=== PATIENT | male | born 1960 | race Caucasian/White ===

== ENCOUNTER 2021-10-12 11:10 | Inpatient (IN) ==
[2021-10-12 12:46] LABS: Basophils # 0.1 K/mcL (0.0-0.2); Eosinophils # 0.2 K/mcL (0.0-0.6); Eosinophils % 2.1 %; Hematocrit 37.9 % (37.5-50.1); Hemoglobin 12.7 g/dL (12.9-16.9); Immature Granulocytes % 0.9 % (0-4); Lymphocytes # 1.3 K/mcL (0.6-4.6); Lymphocytes % 17.8 %; Mean Corpuscular HGB Conc 33.5 g/dL (31.6-35.5); Mean Corpuscular Hemoglobin 31.6 pg (28.0-33.3); Mean Corpuscular Volume 94.3 fL (83.0-100.0); Mean Platelet Volume 10.2 fL (9.4-12.4); Monocytes # 0.9 K/mcL (0.0-1.3); Monocytes % 12.4 %; Neutrophils # 4.6 K/mcL (1.6-8.9); Platelet Count 184 K/mcL (140-400); Red Blood Count 4.02 M/mcL (4.19-5.50); Red Cell Distribution Width 14.2 % (11.5-14.5); Segmented Neutrophils % 65.8 %
[2021-10-12 12:57] LABS: INR 1.3; Prothrombin Time 14.3 Seconds (9.4-12.1)
[2021-10-12 13:00] LABS: Activated Partial Thrombo Time 36.9 Seconds (26.0-36.0)
[2021-10-12 13:02] LABS: Bilirubin,Urine Negative (Negative); Blood,Urine Negative (Negative); Clarity,Urine Clear (Clear); Color,Urine Yellow (Yellow); Glucose,Urine (UA) Normal (Normal); Ketones,Urine Negative (Negative); Leukocyte Esterase,Urine Negative (Negative); Nitrite,Urine Negative (Negative); Protein,Urine Trace mg/dL (Neg-Trace); Specific Gravity,Urine 1.026 (1.010-1.025)
[2021-10-12 13:07] LABS: Amphetamine Screen,Urine Negative ng/mL (Cutoff=1000); Barbiturate Screen,Urine Negative ng/mL (Cutoff=200); Benzodiazepines Screen,Urine Negative ng/mL (Cutoff=200); Cannabinoid Screen,Urine Negative ng/mL (Cutoff = 50); Cocaine Screen,Urine Negative ng/mL (Cutoff= 300); Opiate Screen,Urine Negative ng/mL (Cutoff=300); Phencyclidine Screen,Urine Negative ng/mL (Cutoff=25)
[2021-10-12 13:07] LABS: Alanine Aminotransferase 20 Units/L (7-52); Albumin 2.8 g/dL (3.5-5.7); Albumin/Globulin Ratio 0.8 (1.1-2.2); Alkaline Phosphatase 76 Units/L (34-104); Aspartate Amino Transferase 31 Units/L (13-39); BUN/Creatinine Ratio 25 (6-26); Bilirubin,Direct 0.6 mg/dL (0.0-0.2); Bilirubin,Indirect 1.3 mg/dL (0.0-1.0); Bilirubin,Total 1.9 mg/dL (0.3-1.0); Blood Urea Nitrogen 25 mg/dL (8-23); Carbon Dioxide 19 mEq/L (23-29); Chloride 108 mEq/L (98-107); Creatine Kinase 35 Units/L (30-223); Ethanol < 10 mg/dL (Less than 10); Globulin 3.3 g/dL (2.4-3.5); Glucose 122 mg/dL (70-105); Osmolality,Calculated 284 (280-300); Potassium 4.2 mEq/L (3.5-5.1); Sodium 134 mEq/L (136-145); Total Protein 6.1 g/dL (6.4-8.9); Troponin I < 0.03 ng/mL (< 0.04); eGFR For African Americans > 60 (> 60); eGFR For Non-African Americans > 60 (> 60)
[2021-10-12] MEDS ORDERED: 0.9 % Sodium Chloride 500 ML IVC ONE (14:24)
[2021-10-12] MEDS ORDERED: cefTRIAXone 1,000 MG in 0.9 % Sodium Chloride Mini Bag 100 ML IVPB ONE (14:57)
[2021-10-12] MEDS ORDERED: Albumin 25% 25gram/100mL 25 GM/100 ML IV.SOLN IVPB ONE (15:30)
[2021-10-12] MEDS ORDERED: Acetaminophen 325 MG TABLET PO PRN (15:30)
[2021-10-12] MEDS ORDERED: Naloxone 0.4 MG/ML INJ IVP PRN (15:30)
[2021-10-12] MEDS ORDERED: Ondansetron 4 MG/2 ML VIAL IVP PRN (15:30)
[2021-10-12] MEDS ORDERED: Azithromycin 500 MG in 0.9 % Sodium Chloride 250 ML IVPB ONE (15:33)
[2021-10-12] MEDS ORDERED: Albuterol 2.5 MG/3 ML NEBULIZER IH PRN (15:35)
[2021-10-12] MEDS: *HR* Heparin 5,000 UNIT/ML VIAL SQ SCH (18:49)
[2021-10-12] MEDS: Lactulose Oral Soln 20 GM/30 ML UDC PO SCH (20:39)
[2021-10-12] MEDS ORDERED: Azithromycin 500 MG in 0.9 % Sodium Chloride 250 ML IVPB SCH (21:00)
[2021-10-12] MEDS: Albumin 25% 25gram/100mL 25 GM/100 ML IV.SOLN IVPB SCH (21:13)
[2021-10-13 01:13] LABS: Basophils # 0.1 K/mcL (0.0-0.2); Basophils % 0.9 %; Eosinophils # 0.2 K/mcL (0.0-0.6); Eosinophils % 3.1 %; Hematocrit 32.1 % (37.5-50.1); Hemoglobin 11.4 g/dL (12.9-16.9); Immature Granulocytes % 1.1 % (0-4); Lymphocytes # 1.8 K/mcL (0.6-4.6); Mean Corpuscular HGB Conc 35.5 g/dL (31.6-35.5); Mean Platelet Volume 10.4 fL (9.4-12.4); Monocytes % 13.3 %; Neutrophils # 4.4 K/mcL (1.6-8.9); Platelet Count 185 K/mcL (140-400); Red Blood Count 3.45 M/mcL (4.19-5.50); Red Cell Distribution Width 14.1 % (11.5-14.5); Segmented Neutrophils % 57.6 %; White Blood Count 7.5 K/mcL (4.3-11.1)
[2021-10-13 01:39] LABS: BUN/Creatinine Ratio 28 (6-26); Blood Urea Nitrogen 25 mg/dL (8-23); Calcium 8.8 mg/dL (8.6-10.3); Carbon Dioxide 16 mEq/L (23-29); Chloride 112 mEq/L (98-107); Glucose 85 mg/dL (70-105); Magnesium 1.9 mg/dL (1.6-2.6); Osmolality,Calculated 286 (280-300); Phosphorous 3.8 mg/dL (2.7-4.5); Potassium 3.9 mEq/L (3.5-5.1); Sodium 136 mEq/L (136-145); eGFR For African Americans > 60 (> 60); eGFR For Non-African Americans > 60 (> 60)
[2021-10-13] MEDS: Albumin 25% 25gram/100mL 25 GM/100 ML IV.SOLN IVPB SCH ×4 (04:31→22:28)
[2021-10-13] MEDS: *HR* Heparin 5,000 UNIT/ML VIAL SQ SCH ×2 (05:58→18:12)
[2021-10-13] MEDS ORDERED: cefTRIAXone 1,000 MG in 0.9 % Sodium Chloride 10 ML IVP SCH (09:00)
[2021-10-13] MEDS ORDERED: Azithromycin 500 MG in 0.9 % Sodium Chloride 250 ML IVPB SCH (09:00)
[2021-10-13] MEDS: cefTRIAXone 2,000 MG in 0.9 % Sodium Chloride 20 ML IVP SCH (11:18)
[2021-10-13] MEDS: Lactulose Oral Soln 20 GM/30 ML UDC PO SCH ×2 (11:18→20:37)
[2021-10-13] MEDS: metroNIDAZOLE 500 MG TABLET PO SCH ×2 (14:29→20:37)
[2021-10-13 16:06] LABS: Glucose,Peritoneal Fluid 106 mg/dL (No Ref Range); LDH,Peritoneal Fluid 52 Units/L (No Ref Range); Total Protein,Peritoneal Fluid < 2.0 g/dL
[2021-10-13 17:41] LABS: RBC,Peritoneal Fluid < 2000 RBC/mcL
[2021-10-13 19:09] LABS: Appearance of Peritoneal Fl CLEAR (Clear); Basophils,Peritoneal Fluid 0 %; Eosinophils,Peritoneal Fluid 0 %
[2021-10-14] MEDS: *HR* Heparin 5,000 UNIT/ML VIAL SQ SCH ×2 (05:15→17:25)
[2021-10-14 06:12] LABS: Hematocrit 37.2 % (37.5-50.1); Hemoglobin 12.7 g/dL (12.9-16.9); Mean Corpuscular HGB Conc 34.1 g/dL (31.6-35.5); Mean Corpuscular Hemoglobin 32.2 pg (28.0-33.3); Mean Corpuscular Volume 94.2 fL (83.0-100.0); Mean Platelet Volume 10.4 fL (9.4-12.4); Platelet Count 184 K/mcL (140-400); Red Blood Count 3.95 M/mcL (4.19-5.50); Red Cell Distribution Width 13.9 % (11.5-14.5); White Blood Count 8.4 K/mcL (4.3-11.1)
[2021-10-14 06:20] LABS: INR 1.4; Prothrombin Time 15.4 Seconds (9.4-12.1)
[2021-10-14 06:33] LABS: Alanine Aminotransferase 15 Units/L (7-52); Albumin 3.3 g/dL (3.5-5.7); Albumin/Globulin Ratio 1.2 (1.1-2.2); Alkaline Phosphatase 70 Units/L (34-104); Aspartate Amino Transferase 25 Units/L (13-39); BUN/Creatinine Ratio 24 (6-26); Bilirubin,Direct 0.7 mg/dL (0.0-0.2); Bilirubin,Indirect 1.1 mg/dL (0.0-1.0); Bilirubin,Total 1.8 mg/dL (0.3-1.0); Blood Urea Nitrogen 24 mg/dL (8-23); Calcium 9.2 mg/dL (8.6-10.3); Carbon Dioxide 19 mEq/L (23-29); Chloride 108 mEq/L (98-107); Globulin 2.7 g/dL (2.4-3.5); Glucose 121 mg/dL (70-105); Osmolality,Calculated 287 (280-300); Phosphorous 3.3 mg/dL (2.7-4.5); Potassium 3.9 mEq/L (3.5-5.1); Sodium 136 mEq/L (136-145); eGFR For African Americans > 60 (> 60); eGFR For Non-African Americans > 60 (> 60)
[2021-10-14] MEDS: Lactulose Oral Soln 20 GM/30 ML UDC PO SCH ×2 (10:24→20:24)
[2021-10-14] MEDS: metroNIDAZOLE 500 MG TABLET PO SCH (10:25)
[2021-10-14] MEDS: cefTRIAXone 2,000 MG in 0.9 % Sodium Chloride 20 ML IVP SCH (10:25)
[2021-10-14] MEDS ORDERED: Pantoprazole 40 MG VIAL IVP ONE (22:12)
[2021-10-14] MEDS ORDERED: Melatonin 3 MG TABLET PO PRN (22:12)
[2021-10-15] MEDS: *HR* Heparin 5,000 UNIT/ML VIAL SQ SCH ×2 (05:05→17:24)
[2021-10-15] MEDS: Lactulose Oral Soln 20 GM/30 ML UDC PO SCH ×2 (15:17→20:34)
[2021-10-16] MEDS: *HR* Heparin 5,000 UNIT/ML VIAL SQ SCH (05:21)
[2021-10-16 09:44] LABS: Hematocrit 40.1 % (37.5-50.1); Hemoglobin 13.7 g/dL (12.9-16.9); Mean Corpuscular HGB Conc 34.2 g/dL (31.6-35.5); Mean Corpuscular Hemoglobin 31.9 pg (28.0-33.3); Mean Corpuscular Volume 93.3 fL (83.0-100.0); Mean Platelet Volume 10.6 fL (9.4-12.4); Platelet Count 195 K/mcL (140-400); Red Cell Distribution Width 13.8 % (11.5-14.5); White Blood Count 7.1 K/mcL (4.3-11.1)
[2021-10-16 09:49] LABS: INR 1.3; Prothrombin Time 14.6 Seconds (9.4-12.1)
[2021-10-16 10:00] LABS: Alanine Aminotransferase 20 Units/L (7-52); Albumin 3.1 g/dL (3.5-5.7); Alkaline Phosphatase 71 Units/L (34-104); Aspartate Amino Transferase 34 Units/L (13-39); BUN/Creatinine Ratio 27 (6-26); Bilirubin,Direct 0.5 mg/dL (0.0-0.2); Bilirubin,Indirect 1.3 mg/dL (0.0-1.0); Bilirubin,Total 1.8 mg/dL (0.3-1.0); Blood Urea Nitrogen 21 mg/dL (8-23); Calcium 9.4 mg/dL (8.6-10.3); Carbon Dioxide 20 mEq/L (23-29); Chloride 105 mEq/L (98-107); Glucose 133 mg/dL (70-105); Magnesium 1.7 mg/dL (1.6-2.6); Osmolality,Calculated 279 (280-300); Phosphorous 3.5 mg/dL (2.7-4.5); Potassium 4.1 mEq/L (3.5-5.1); Sodium 132 mEq/L (136-145); Total Protein 6.1 g/dL (6.4-8.9); eGFR For African Americans > 60 (> 60); eGFR For Non-African Americans > 60 (> 60)
[2021-10-16 10:18] LABS: Fluid Source for Albumin PERITONEAL
[2021-10-16] MEDS: Lactulose Oral Soln 20 GM/30 ML UDC PO SCH (10:18)
[2021-10-16 12:19] VITALS: BP 97/61; PULSE 85; TEMP 98.2; O2SAT 100
== END 2021-10-16 12:38 | disposition home or self-care (01) | DRG 280 ==
LOC: EMEROOARM 11:10 → 3ANU 11:10 → SUATTDRO 16:18 → 3ANU 17:07
PROVIDERS: ADMIT Internal Medicine; ATTEND Internal Medicine

== ENCOUNTER 2021-12-11 16:01 | Observation (INO) ==
[2021-12-11] MEDS ORDERED: 0.9 % Sodium Chloride 1,000 ML ONE (17:26)
[2021-12-11 17:38] LABS: Basophils # 0.1 K/mcL (0.0-0.2); Basophils % 0.6 %; Eosinophils # 0.1 K/mcL (0.0-0.6); Eosinophils % 1.7 %; Hematocrit 29.5 % (37.5-50.1); Hemoglobin 10.5 g/dL (12.9-16.9); Immature Granulocytes % 1.1 % (0-4); Lymphocytes # 1.3 K/mcL (0.6-4.6); Lymphocytes % 15.7 %; Mean Corpuscular HGB Conc 35.6 g/dL (31.6-35.5); Mean Corpuscular Volume 89.9 fL (83.0-100.0); Mean Platelet Volume 10.4 fL (9.4-12.4); Monocytes % 11.9 %; Neutrophils # 5.7 K/mcL (1.6-8.9); Platelet Count 177 K/mcL (140-400); Red Blood Count 3.28 M/mcL (4.19-5.50); Red Cell Distribution Width 13.6 % (11.5-14.5); White Blood Count 8.2 K/mcL (4.3-11.1)
[2021-12-11] MEDS ORDERED: 0.9 % Sodium Chloride 1,000 ML IVC ONE (17:38)
[2021-12-11 17:50] LABS: Alanine Aminotransferase 24 Units/L (7-52); Albumin 2.7 g/dL (3.5-5.7); Albumin/Globulin Ratio 0.8 (1.1-2.2); Alkaline Phosphatase 85 Units/L (34-104); Aspartate Amino Transferase 35 Units/L (13-39); BUN/Creatinine Ratio 28 (6-26); Blood Urea Nitrogen 39 mg/dL (8-23); Calcium 8.4 mg/dL (8.6-10.3); Carbon Dioxide 18 mEq/L (23-29); Chloride 106 mEq/L (98-107); Globulin 3.4 g/dL (2.4-3.5); Glucose 126 mg/dL (70-105); Osmolality,Calculated 285 (280-300); Potassium 3.8 mEq/L (3.5-5.1); Sodium 132 mEq/L (136-145); Total Protein 6.1 g/dL (6.4-8.9); Troponin I < 0.03 ng/mL (< 0.04); eGFR For African Americans > 60 (> 60); eGFR For Non-African Americans 52 (> 60)
[2021-12-11] MEDS ORDERED: Albumin 25% 25gram/100mL 25 GM/100 ML IV.SOLN IVPB ONE (17:53)
[2021-12-11 17:56] LABS: Ethanol < 10 mg/dL (Less than 10)
[2021-12-11 18:01] LABS: INR 1.3; Prothrombin Time 14.1 Seconds (9.4-12.1)
[2021-12-11 18:04] LABS: Activated Partial Thrombo Time 35.9 Seconds (26.0-36.0)
[2021-12-11] MEDS ORDERED: Lactulose Oral Soln 20 GM/30 ML UDC PO ONE (18:34)
[2021-12-11 20:08] LABS: Bilirubin,Urine Negative (Negative); Blood,Urine Negative (Negative); Clarity,Urine Clear (Clear); Color,Urine Yellow (Yellow); Glucose,Urine (UA) Normal (Normal); Ketones,Urine Trace mg/dL (Negative); Leukocyte Esterase,Urine Negative (Negative); Nitrite,Urine Negative (Negative); Protein,Urine Trace mg/dL (Neg-Trace); Specific Gravity,Urine 1.027 (1.010-1.025)
[2021-12-11 20:10] LABS: VBG HCO3 16 mEq/L (21-27); VBG PCO2 24 mmHg (41-51); VBG PH 7.43 pH Units (7.32-7.42); VBG PO2 68 mmHg (25-50)
[2021-12-11 20:19] LABS: Amphetamine Screen,Urine Negative ng/mL (Cutoff=1000); Barbiturate Screen,Urine Negative ng/mL (Cutoff=200); Benzodiazepines Screen,Urine Negative ng/mL (Cutoff=200); Cannabinoid Screen,Urine Negative ng/mL (Cutoff = 50); Cocaine Screen,Urine Negative ng/mL (Cutoff= 300); Opiate Screen,Urine Negative ng/mL (Cutoff=300); Phencyclidine Screen,Urine Negative ng/mL (Cutoff=25)
[2021-12-11] MEDS ORDERED: Acetaminophen 325 MG TABLET PO PRN (21:48)
[2021-12-11] MEDS ORDERED: Ondansetron 4 MG/2 ML VIAL IVP PRN (21:48)
[2021-12-11] MEDS ORDERED: Naloxone 0.4 MG/ML INJ IVP PRN (21:48)
[2021-12-11] MEDS ORDERED: Melatonin 3 MG TABLET PO PRN (21:48)
[2021-12-11] MEDS ORDERED: 0.9 % Sodium Chloride 1,000 ML IVC SCH (22:45)
[2021-12-11] MEDS ORDERED: D5% in Water 1,000 ML IVC PRN (22:55)
[2021-12-11] MEDS ORDERED: *HR* Dextrose 50 % in Water (Syg) 50 ML SYRINGE IVP PRN (22:55)
[2021-12-11] MEDS ORDERED: Dextrose Gel 15 GM/37.5 ML TUBE PO PRN ×2 (22:55)
[2021-12-12] MEDS: Insulin LISPRO 300 UNITS/3 ML VIAL SUBQ SCH ×4 (00:15→16:56)
[2021-12-12 01:47] LABS: Basophils # 0.1 K/mcL (0.0-0.2); Basophils % 0.8 %; Eosinophils # 0.2 K/mcL (0.0-0.6); Eosinophils % 2.6 %; Hematocrit 28.4 % (37.5-50.1); Hemoglobin 9.9 g/dL (12.9-16.9); Immature Granulocytes % 0.9 % (0-4); Lymphocytes # 1.8 K/mcL (0.6-4.6); Lymphocytes % 22.7 %; Mean Corpuscular HGB Conc 34.9 g/dL (31.6-35.5); Mean Corpuscular Hemoglobin 31.6 pg (28.0-33.3); Mean Corpuscular Volume 90.7 fL (83.0-100.0); Mean Platelet Volume 10.2 fL (9.4-12.4); Monocytes # 1.1 K/mcL (0.0-1.3); Monocytes % 13.8 %; Neutrophils # 4.6 K/mcL (1.6-8.9); Platelet Count 170 K/mcL (140-400); Red Blood Count 3.13 M/mcL (4.19-5.50); Red Cell Distribution Width 13.6 % (11.5-14.5); Segmented Neutrophils % 59.2 %; White Blood Count 7.8 K/mcL (4.3-11.1)
[2021-12-12 02:03] LABS: INR 1.3
[2021-12-12 02:13] LABS: Alanine Aminotransferase 19 Units/L (7-52); Albumin 2.6 g/dL (3.5-5.7); Albumin/Globulin Ratio 0.9 (1.1-2.2); Alkaline Phosphatase 72 Units/L (34-104); Aspartate Amino Transferase 28 Units/L (13-39); BUN/Creatinine Ratio 32 (6-26); Bilirubin,Total 1.5 mg/dL (0.3-1.0); Blood Urea Nitrogen 35 mg/dL (8-23); Calcium 8.3 mg/dL (8.6-10.3); Carbon Dioxide 17 mEq/L (23-29); Chloride 109 mEq/L (98-107); Chol/HDL Ratio 2.6 (0-4.9); Cholesterol 81 mg/dL (< 200); Globulin 2.8 g/dL (2.4-3.5); Glucose 103 mg/dL (70-105); HDL Cholesterol 31 mg/dL (40-59); LDL Cholesterol,Calculated 43 mg/dL (< 100); Magnesium 1.9 mg/dL (1.6-2.6); Osmolality,Calculated 284 (280-300); Potassium 3.5 mEq/L (3.5-5.1); Sodium 133 mEq/L (136-145); Total Protein 5.4 g/dL (6.4-8.9); Triglycerides 34 mg/dL (< 150); eGFR For African Americans > 60 (> 60); eGFR For Non-African Americans > 60 (> 60)
[2021-12-12] MEDS: *HR* Heparin 5,000 UNIT/ML VIAL SQ SCH ×3 (05:58→21:33)
[2021-12-12] MEDS: Lactulose Oral Soln 20 GM/30 ML UDC PO SCH ×3 (09:48→21:35)
[2021-12-12 16:00] LABS: Glucose,Peritoneal Fluid 123 mg/dL (No Ref Range); LDH,Peritoneal Fluid 47 Units/L (No Ref Range); Total Protein,Peritoneal Fluid < 2.0 g/dL
[2021-12-12 16:43] LABS: RBC,Peritoneal Fluid < 2000 RBC/mcL
[2021-12-12 18:23] LABS: Appearance of Peritoneal Fl CLEAR (Clear); Basophils,Peritoneal Fluid 0 %; Eosinophils,Peritoneal Fluid 0 %
[2021-12-13] MEDS: Insulin LISPRO 300 UNITS/3 ML VIAL SUBQ SCH ×3 (02:38→11:41)
[2021-12-13 06:09] LABS: Mean Corpuscular HGB Conc 35.3 g/dL (31.6-35.5); Mean Corpuscular Hemoglobin 31.8 pg (28.0-33.3); Mean Corpuscular Volume 90.2 fL (83.0-100.0); Mean Platelet Volume 10.6 fL (9.4-12.4); Platelet Count 187 K/mcL (140-400); Red Blood Count 3.77 M/mcL (4.19-5.50); Red Cell Distribution Width 13.4 % (11.5-14.5)
[2021-12-13 06:12] LABS: White Blood Count 11.9 K/mcL (4.3-11.1)
[2021-12-13 06:19] LABS: Alanine Aminotransferase 17 Units/L (7-52); Albumin 2.5 g/dL (3.5-5.7); Alkaline Phosphatase 76 Units/L (34-104); Aspartate Amino Transferase 25 Units/L (13-39); BUN/Creatinine Ratio 33 (6-26); Bilirubin,Total 1.3 mg/dL (0.3-1.0); Blood Urea Nitrogen 37 mg/dL (8-23); Calcium 8.2 mg/dL (8.6-10.3); Carbon Dioxide 16 mEq/L (23-29); Chloride 107 mEq/L (98-107); Globulin 2.6 g/dL (2.4-3.5); Glucose 133 mg/dL (70-105); Osmolality,Calculated 281 (280-300); Sodium 130 mEq/L (136-145); Total Protein 5.1 g/dL (6.4-8.9); eGFR For African Americans > 60 (> 60); eGFR For Non-African Americans > 60 (> 60)
[2021-12-13] MEDS: *HR* Heparin 5,000 UNIT/ML VIAL SQ SCH (06:25)
[2021-12-13 06:59] VITALS: BP 99/63; PULSE 81; TEMP 98.2; O2SAT 98
[2021-12-13] MEDS: Lactulose Oral Soln 20 GM/30 ML UDC PO SCH (08:12)
== END 2021-12-13 12:10 | disposition home health service (06) ==
LOC: 2ANU 16:01 → EMEROOARM 16:01 → SUATTDRO 21:36 → 2ANU 22:03
PROVIDERS: ADMIT Internal Medicine; ATTEND Internal Medicine

== ENCOUNTER 2021-12-20 09:32 | Inpatient (IN) ==
[2021-12-20] MEDS ORDERED: 0.9 % Sodium Chloride 1,000 ML IVC ONE (10:11)
[2021-12-20 10:48] LABS: Basophils # 0.1 K/mcL (0.0-0.2); Basophils % 0.8 %; Eosinophils # 0.1 K/mcL (0.0-0.6); Eosinophils % 0.9 %; Hematocrit 29.6 % (37.5-50.1); Hemoglobin 10.3 g/dL (12.9-16.9); Immature Granulocytes % 1.8 % (0-4); Lymphocytes # 1.3 K/mcL (0.6-4.6); Lymphocytes % 14.1 %; Mean Corpuscular HGB Conc 34.8 g/dL (31.6-35.5); Mean Corpuscular Hemoglobin 31.8 pg (28.0-33.3); Mean Corpuscular Volume 91.4 fL (83.0-100.0); Mean Platelet Volume 10.5 fL (9.4-12.4); Monocytes # 1.3 K/mcL (0.0-1.3); Monocytes % 14.6 %; Neutrophils # 6.2 K/mcL (1.6-8.9); Platelet Count 216 K/mcL (140-400); Red Blood Count 3.24 M/mcL (4.19-5.50); Red Cell Distribution Width 13.5 % (11.5-14.5); Segmented Neutrophils % 67.8 %; White Blood Count 9.1 K/mcL (4.3-11.1)
[2021-12-20 10:55] LABS: Alanine Aminotransferase 28 Units/L (7-52); Albumin 2.5 g/dL (3.5-5.7); Albumin/Globulin Ratio 0.8 (1.1-2.2); Alkaline Phosphatase 83 Units/L (34-104); Aspartate Amino Transferase 39 Units/L (13-39); BUN/Creatinine Ratio 34 (6-26); Bilirubin,Direct 0.6 mg/dL (0.0-0.2); Bilirubin,Indirect 1.2 mg/dL (0.0-1.0); Bilirubin,Total 1.8 mg/dL (0.3-1.0); Blood Urea Nitrogen 44 mg/dL (8-23); Calcium 8.3 mg/dL (8.6-10.3); Carbon Dioxide 19 mEq/L (23-29); Chloride 103 mEq/L (98-107); Ethanol < 10 mg/dL (Less than 10); Globulin 3.2 g/dL (2.4-3.5); Glucose 135 mg/dL (70-105); Osmolality,Calculated 279 (280-300); Sodium 128 mEq/L (136-145); Total Protein 5.7 g/dL (6.4-8.9); eGFR For African Americans > 60 (> 60); eGFR For Non-African Americans 57 (> 60)
[2021-12-20 11:12] LABS: INR 1.3; Prothrombin Time 14.1 Seconds (9.4-12.1)
[2021-12-20 11:24] LABS: Troponin I < 0.03 ng/mL (< 0.04)
[2021-12-20 12:34] LABS: Bilirubin,Urine Negative (Negative); Blood,Urine Negative (Negative); Clarity,Urine Clear (Clear); Color,Urine Yellow (Yellow); Glucose,Urine (UA) Normal (Normal); Ketones,Urine Negative (Negative); Leukocyte Esterase,Urine Negative (Negative); Nitrite,Urine Negative (Negative); Protein,Urine Negative (Neg-Trace); Specific Gravity,Urine 1.024 (1.010-1.025); Urobilinogen,Urine Normal (Normal)
[2021-12-20 12:43] LABS: Amphetamine Screen,Urine Negative ng/mL (Cutoff=1000); Barbiturate Screen,Urine Negative ng/mL (Cutoff=200); Benzodiazepines Screen,Urine Negative ng/mL (Cutoff=200); Cannabinoid Screen,Urine Negative ng/mL (Cutoff = 50); Cocaine Screen,Urine Negative ng/mL (Cutoff= 300); Opiate Screen,Urine Negative ng/mL (Cutoff=300); Phencyclidine Screen,Urine Negative ng/mL (Cutoff=25)
[2021-12-20] MEDS ORDERED: MOM Conc 10 ML UD.LIQ PO PRN (14:24)
[2021-12-20] MEDS ORDERED: Ondansetron ODT 4 MG TAB.RAPDIS SL PRN (14:24)
[2021-12-20] MEDS ORDERED: Mag Hydrox/Al Hydrox/Simeth 30 ML UDC PO PRN (14:24)
[2021-12-20] MEDS ORDERED: Melatonin 3 MG TABLET PO PRN (14:24)
[2021-12-20] MEDS ORDERED: Naloxone 0.4 MG/ML INJ IVP PRN (14:24)
[2021-12-20] MEDS: Lactulose Oral Soln 20 GM/30 ML UDC PO SCH ×2 (17:49→21:28)
[2021-12-21 05:49] LABS: Basophils # 0.1 K/mcL (0.0-0.2); Basophils % 0.6 %; Eosinophils # 0.1 K/mcL (0.0-0.6); Eosinophils % 0.9 %; Hematocrit 29.7 % (37.5-50.1); Hemoglobin 10.5 g/dL (12.9-16.9); Immature Granulocytes % 1.1 % (0-4); Lymphocytes # 1.5 K/mcL (0.6-4.6); Lymphocytes % 16.9 %; Mean Corpuscular HGB Conc 35.4 g/dL (31.6-35.5); Mean Corpuscular Hemoglobin 31.6 pg (28.0-33.3); Mean Corpuscular Volume 89.5 fL (83.0-100.0); Mean Platelet Volume 10.3 fL (9.4-12.4); Monocytes # 1.3 K/mcL (0.0-1.3); Monocytes % 14.8 %; Neutrophils # 5.8 K/mcL (1.6-8.9); Platelet Count 201 K/mcL (140-400); Red Blood Count 3.32 M/mcL (4.19-5.50); Red Cell Distribution Width 13.3 % (11.5-14.5); Segmented Neutrophils % 65.7 %; White Blood Count 8.8 K/mcL (4.3-11.1)
[2021-12-21 06:14] LABS: Alanine Aminotransferase 23 Units/L (7-52); Albumin 2.3 g/dL (3.5-5.7); Albumin/Globulin Ratio 0.8 (1.1-2.2); Alkaline Phosphatase 88 Units/L (34-104); Aspartate Amino Transferase 33 Units/L (13-39); BUN/Creatinine Ratio 44 (6-26); Bilirubin,Total 1.3 mg/dL (0.3-1.0); Blood Urea Nitrogen 43 mg/dL (8-23); Calcium 8.1 mg/dL (8.6-10.3); Carbon Dioxide 16 mEq/L (23-29); Chloride 106 mEq/L (98-107); Globulin 2.8 g/dL (2.4-3.5); Glucose 128 mg/dL (70-105); Osmolality,Calculated 280 (280-300); Potassium 3.9 mEq/L (3.5-5.1); Sodium 129 mEq/L (136-145); Total Protein 5.1 g/dL (6.4-8.9); eGFR For African Americans > 60 (> 60); eGFR For Non-African Americans > 60 (> 60)
[2021-12-21] MEDS: Furosemide 40 MG TABLET PO SCH (11:36)
[2021-12-21] MEDS: Lactulose Oral Soln 20 GM/30 ML UDC PO SCH ×4 (11:37→21:23)
[2021-12-21] MEDS: Albumin 25% 25gram/100mL 25 GM/100 ML IV.SOLN IVPB SCH (15:06)
[2021-12-21 21:39] LABS: Estimated Average Glucose 114 mg/dl; Hemoglobin A1C 5.6 %
[2021-12-21 22:09] LABS: Thyroid Stimulating Hormone 3.155 mcIU/mL (0.340-5.600)
[2021-12-22] MEDS: Albumin 25% 25gram/100mL 25 GM/100 ML IV.SOLN IVPB SCH ×3 (01:27→17:19)
[2021-12-22] MEDS: Furosemide 40 MG TABLET PO SCH (08:58)
[2021-12-22] MEDS: Lactulose Oral Soln 20 GM/30 ML UDC PO SCH ×4 (09:00→20:23)
[2021-12-22 10:55] LABS: BUN/Creatinine Ratio 37 (6-26); Blood Urea Nitrogen 41 mg/dL (8-23); Calcium 8.3 mg/dL (8.6-10.3); Carbon Dioxide 18 mEq/L (23-29); Chloride 101 mEq/L (98-107); Glucose 234 mg/dL (70-105); Osmolality,Calculated 284 (280-300); Potassium 3.7 mEq/L (3.5-5.1); Sodium 128 mEq/L (136-145); eGFR For African Americans > 60 (> 60); eGFR For Non-African Americans > 60 (> 60)
[2021-12-22] MEDS: 0.9 % Sodium Chloride 1,000 ML IVC SCH (14:46)
[2021-12-23] MEDS: Albumin 25% 25gram/100mL 25 GM/100 ML IV.SOLN IVPB SCH ×3 (00:27→15:46)
[2021-12-23] MEDS: Lactulose Oral Soln 20 GM/30 ML UDC PO SCH ×4 (08:26→20:33)
[2021-12-23 10:16] LABS: BUN/Creatinine Ratio 35 (6-26); Blood Urea Nitrogen 39 mg/dL (8-23); Calcium 8.6 mg/dL (8.6-10.3); Carbon Dioxide 16 mEq/L (23-29); Chloride 104 mEq/L (98-107); Glucose 181 mg/dL (70-105); Osmolality,Calculated 280 (280-300); Potassium 4.3 mEq/L (3.5-5.1); Sodium 128 mEq/L (136-145); eGFR For African Americans > 60 (> 60); eGFR For Non-African Americans > 60 (> 60)
[2021-12-23] MEDS: 0.9 % Sodium Chloride 1,000 ML IVC SCH ×2 (10:45→12:50)
[2021-12-24] MEDS: Albumin 25% 25gram/100mL 25 GM/100 ML IV.SOLN IVPB SCH ×3 (00:30→16:03)
[2021-12-24 01:53] LABS: BUN/Creatinine Ratio 31 (6-26); Blood Urea Nitrogen 36 mg/dL (8-23); Calcium 8.3 mg/dL (8.6-10.3); Carbon Dioxide 16 mEq/L (23-29); Chloride 108 mEq/L (98-107); Glucose 148 mg/dL (70-105); Osmolality,Calculated 277 (280-300); Potassium 4.1 mEq/L (3.5-5.1); Sodium 128 mEq/L (136-145); eGFR For African Americans > 60 (> 60); eGFR For Non-African Americans > 60 (> 60)
[2021-12-24] MEDS: 0.9 % Sodium Chloride 1,000 ML IVC SCH ×2 (06:03→22:32)
[2021-12-24] MEDS: Lactulose Oral Soln 20 GM/30 ML UDC PO SCH ×4 (07:33→20:29)
[2021-12-25] MEDS: Albumin 25% 25gram/100mL 25 GM/100 ML IV.SOLN IVPB SCH ×4 (00:40→23:38)
[2021-12-25 06:16] LABS: BUN/Creatinine Ratio 36 (6-26); Blood Urea Nitrogen 35 mg/dL (8-23); Calcium 8.7 mg/dL (8.6-10.3); Carbon Dioxide 17 mEq/L (23-29); Chloride 108 mEq/L (98-107); Glucose 122 mg/dL (70-105); Osmolality,Calculated 285 (280-300); Potassium 3.8 mEq/L (3.5-5.1); Sodium 133 mEq/L (136-145); eGFR For African Americans > 60 (> 60); eGFR For Non-African Americans > 60 (> 60)
[2021-12-25] MEDS: Lactulose Oral Soln 20 GM/30 ML UDC PO SCH ×4 (08:05→20:12)
[2021-12-25] MEDS: 0.9 % Sodium Chloride 1,000 ML IVC SCH ×2 (13:27→16:28)
[2021-12-26 06:48] LABS: BUN/Creatinine Ratio 29 (6-26); Blood Urea Nitrogen 32 mg/dL (8-23); Calcium 8.8 mg/dL (8.6-10.3); Carbon Dioxide 18 mEq/L (23-29); Chloride 109 mEq/L (98-107); Glucose 133 mg/dL (70-105); Osmolality,Calculated 287 (280-300); Sodium 134 mEq/L (136-145); eGFR For African Americans > 60 (> 60); eGFR For Non-African Americans > 60 (> 60)
[2021-12-26] MEDS: 0.9 % Sodium Chloride 1,000 ML IVC SCH (07:52)
[2021-12-26] MEDS: Albumin 25% 25gram/100mL 25 GM/100 ML IV.SOLN IVPB SCH ×2 (07:53→16:38)
[2021-12-26] MEDS: Lactulose Oral Soln 20 GM/30 ML UDC PO SCH ×4 (07:57→22:22)
[2021-12-27] MEDS: Albumin 25% 25gram/100mL 25 GM/100 ML IV.SOLN IVPB SCH ×3 (00:13→17:24)
[2021-12-27 02:22] LABS: BUN/Creatinine Ratio 32 (6-26); Blood Urea Nitrogen 36 mg/dL (8-23); Calcium 8.7 mg/dL (8.6-10.3); Carbon Dioxide 17 mEq/L (23-29); Chloride 108 mEq/L (98-107); Glucose 131 mg/dL (70-105); Osmolality,Calculated 284 (280-300); Potassium 4.4 mEq/L (3.5-5.1); Sodium 132 mEq/L (136-145); eGFR For African Americans > 60 (> 60); eGFR For Non-African Americans > 60 (> 60)
[2021-12-27] MEDS: Lactulose Oral Soln 20 GM/30 ML UDC PO SCH ×3 (08:35→20:24)
[2021-12-27] MEDS: 0.9 % Sodium Chloride 1,000 ML IVC SCH ×3 (08:36→20:24)
[2021-12-27] MEDS ORDERED: Lactulose Oral Soln 20 GM/30 ML UDC PO SCH (13:00)
[2021-12-28] MEDS: Albumin 25% 25gram/100mL 25 GM/100 ML IV.SOLN IVPB SCH ×2 (00:17→08:18)
[2021-12-28 02:05] LABS: Basophils # 0.1 K/mcL (0.0-0.2); Basophils % 1.2 %; Eosinophils # 0.3 K/mcL (0.0-0.6); Eosinophils % 3.5 %; Hematocrit 27.2 % (37.5-50.1); Hemoglobin 9.3 g/dL (12.9-16.9); Immature Granulocytes % 1.3 % (0-4); Lymphocytes # 1.5 K/mcL (0.6-4.6); Lymphocytes % 17.4 %; Mean Corpuscular HGB Conc 34.2 g/dL (31.6-35.5); Mean Corpuscular Volume 93.5 fL (83.0-100.0); Mean Platelet Volume 10.5 fL (9.4-12.4); Monocytes # 1.3 K/mcL (0.0-1.3); Monocytes % 15.4 %; Neutrophils # 5.1 K/mcL (1.6-8.9); Platelet Count 178 K/mcL (140-400); Red Blood Count 2.91 M/mcL (4.19-5.50); Red Cell Distribution Width 13.7 % (11.5-14.5); Segmented Neutrophils % 61.2 %; White Blood Count 8.3 K/mcL (4.3-11.1)
[2021-12-28 02:24] LABS: Alanine Aminotransferase 16 Units/L (7-52); Albumin 3.6 g/dL (3.5-5.7); Albumin/Globulin Ratio 2.1 (1.1-2.2); Alkaline Phosphatase 64 Units/L (34-104); Aspartate Amino Transferase 26 Units/L (13-39); BUN/Creatinine Ratio 46 (6-26); Bilirubin,Total 1.2 mg/dL (0.3-1.0); Blood Urea Nitrogen 39 mg/dL (8-23); Calcium 8.7 mg/dL (8.6-10.3); Carbon Dioxide 15 mEq/L (23-29); Chloride 109 mEq/L (98-107); Globulin 1.7 g/dL (2.4-3.5); Glucose 126 mg/dL (70-105); Osmolality,Calculated 285 (280-300); Potassium 4.3 mEq/L (3.5-5.1); Sodium 132 mEq/L (136-145); Total Protein 5.3 g/dL (6.4-8.9); eGFR For African Americans > 60 (> 60); eGFR For Non-African Americans > 60 (> 60)
[2021-12-28 02:25] LABS: BUN/Creatinine Ratio 45 (6-26); Blood Urea Nitrogen 40 mg/dL (8-23); Carbon Dioxide 16 mEq/L (23-29); Chloride 109 mEq/L (98-107); Glucose 127 mg/dL (70-105); Osmolality,Calculated 287 (280-300); Potassium 4.3 mEq/L (3.5-5.1); Sodium 133 mEq/L (136-145); eGFR For African Americans > 60 (> 60); eGFR For Non-African Americans > 60 (> 60)
[2021-12-28] MEDS: Lactulose Oral Soln 20 GM/30 ML UDC PO SCH ×4 (08:17→20:42)
[2021-12-29 04:50] VITALS: BP 97/70; PULSE 72; TEMP 98; O2SAT 99
[2021-12-29] MEDS: Lactulose Oral Soln 20 GM/30 ML UDC PO SCH ×2 (08:35→12:05)
[2021-12-29 09:21] LABS: Albumin/Globulin Ratio 2.1 (1.1-2.2); Bilirubin,Direct 0.5 mg/dL (0.0-0.2); Bilirubin,Total 1.5 mg/dL (0.3-1.0); Globulin 1.9 g/dL (2.4-3.5); Total Protein 5.9 g/dL (6.4-8.9)
[2021-12-29 09:22] LABS: BUN/Creatinine Ratio 41 (6-26); Blood Urea Nitrogen 40 mg/dL (8-23); Calcium 7.9 mg/dL (8.6-10.3); Carbon Dioxide 16 mEq/L (23-29); Chloride 107 mEq/L (98-107); Glucose 235 mg/dL (70-105); Osmolality,Calculated 287 (280-300); Potassium 4.6 mEq/L (3.5-5.1); Sodium 130 mEq/L (136-145); eGFR For African Americans > 60 (> 60); eGFR For Non-African Americans > 60 (> 60)
== END 2021-12-29 12:26 | disposition home health service (06) | DRG 280 ==
LOC: 3BNU 09:32 → EMEROOARM 09:32 → SUATTDRO 13:23 → 3BNU 14:09 → SUATTDRO 12-22 14:47 → 2NENU 12-27 18:47
PROVIDERS: ADMIT Internal Medicine; ATTEND Nurse Practitioner